=== PATIENT | female | born 1985 | race Caucasian/White ===

== ENCOUNTER 2019-01-22 18:54 | Emergency (ER) | payer SELFPAY ==
[~2019-01-22] VITALS: Ht 157.4 cm; Wt 81.6 kg
[~2019-01-22 18:54] MED LIST: ATARAX25 MG PO; KEFLEX500 MG PO; PREDNISONE20 MG PO
[2019-01-22 18:55] VITALS: BP 137/80
[2019-01-22] MEDS ORDERED: PROAIR HFA8.5 GM INH (20:49)
[2019-01-22] MEDS ORDERED: MEDROL DOSEPAK4 MG PO (20:49)
[2019-01-22] MEDS ORDERED: AUGMENTIN 875-875 MG PO (20:49)
== END 2019-01-23 02:01 | disposition home or self-care (01) ==
LOC: ED 18:54
DX: H66.93 Otitis media, unspecified, bilateral (principal); J40 Bronchitis, not specified as acute or chronic; F17.200 Nicotine dependence, unspecified, uncomplicated; Z88.6 Allergy status to analgesic agent

== ENCOUNTER 2019-12-09 19:42 | Emergency (ER) | payer SELFPAY ==
[~2019-12-09] VITALS: Ht 157.4 cm; Wt 70.3 kg
[~2019-12-09 19:42] MED LIST changes: +AUGMENTIN 875-875 MG PO; +MEDROL DOSEPAK4 MG PO; +PROAIR HFA8.5 GM INH
[2019-12-09 19:47] VITALS: BP 142/82
== END 2019-12-09 21:37 | disposition home or self-care (01) ==
LOC: ED 19:42
DX: G43.909 Migraine, unspecified, not intractable, without status migrainosus (principal); I10 Essential (primary) hypertension; R56.9 Unspecified convulsions; F17.200 Nicotine dependence, unspecified, uncomplicated; Z88.8 Allergy status to other drugs, medicaments and biological substances; Z79.899 Other long term (current) drug therapy

== ENCOUNTER → 2020-03-23 | Outpatient (CLI) | payer OTHER | END | disposition home or self-care (01) | LOC: COVID19 02:12 | PROVIDERS: ATTEND Student in an Organized Health Care Education/Training Program | DX: Z20.828 Contact with and (suspected) exposure to other viral communicable diseases (principal) ==

== ENCOUNTER 2022-02-15 15:21 | Emergency (ER) | payer MEDICAID ==
[~2022-02-15] VITALS: Wt 77.1 kg
[2022-02-15 15:37] VITALS: BP 137/85
== END 2022-02-15 16:37 | disposition left against medical advice (07) ==
LOC: ED 15:21
DX: S90.01XA Contusion of right ankle, initial encounter (principal); Z88.6 Allergy status to analgesic agent; W01.0XXA Fall on same level from slipping, tripping and stumbling without subsequent striking against object, initial encounter; Y93.E1 Activity, personal bathing and showering; Y92.89 Other specified places as the place of occurrence of the external cause; Y99.9 Unspecified external cause status